=== PATIENT | female | born 1970 | race Caucasian/White ===

== ENCOUNTER 2019-12-11 22:11 | Inpatient (IN) | payer BC, SELFPAY ==
[2019-12-11 22:40] LABS: #Basophils 0.1 thou/uL (0.0-0.2); #Eosinphils 0.2 thou/uL (0.0-0.7); #Lymphocytes 2.4 thou/uL (1.20-3.40); #Monocytes 0.3 thou/uL (0.11-0.59); #Neutrophils 2.5 thou/uL (1.40-6.50); %Basophils 2.5 % (0.0-1.0); %Eosinophils 3.8 % (0.0-10.0); %Lymphocytes 42.8 % (21.0-51.0); %Monocytes 5.9 % (0.0-10.0); Mean Corpuscular Hemoglobin 31.3 pg (27.0-31.0); Platelet Count 359 thou/uL (130-400); RBC Distribution Width 14.2 % (11.5-14.5); Red Blood Cell (RBC) Count 4.17 mill/uL (4.20-5.40); White Blood Cell (WBC) Count 5.6 thou/uL (4.8-10.8)
--- NOTE | 2019-12-11 22:52 | CT ---
Exam: CT brain PROVIDED CLINICAL HISTORY: Seizure COMPARISON: None FINDINGS: The ventricular system is normal in size and morphology. No evidence for intracranial hemorrhage or mass effect. The extracranial soft tissues and osseous structures demonstrate no evidence for an acute abnormality. IMPRESSION: No evidence for intracranial hemorrhage or mass effect.
--- NOTE | 2019-12-11 22:55 | RAD ---
EXAM: Portable chest PROVIDED CLINICAL HISTORY: Seizure COMPARISON: None FINDINGS: Cardiac and mediastinal silhouette is within normal limits. No focal consolidation, pleural fluid or pneumothorax evident. IMPRESSION: No evidence for an acute cardiopulmonary process.
[2019-12-11 23:04] LABS: ALT (SGPT) 56 U/L (8-55); AST (SGOT) 126 U/L (5-34); Acetaminophen Less than 6.0 mcg/mL (10.0-30.0); Albumin 4.9 g/dL (3.5-5.0); Alcohol 218 mg/dL (Less than 10); Alkaline Phosphatase 112 U/L (40-110); Anion Gap 18 mmol/L (10-20); BUN (Urea Nitrogen) 11 mg/dL (7.0-18.7); Bilirubin, Total 0.2 mg/dL (0.2-1.2); CK (CPK) 79 U/L (29-168); Calc. Creatinine Clearance 0 mL/min (70-130); Calcium 9.6 mg/dL (7.8-10.44); Carbon Dioxide 22 mmol/L (22-29); Chloride 103 mmol/L (98-107); Estimated GFR-MDRD 71; Globulin 3.3 g/dL (2.4-3.5); Glucose 80 mg/dL (70-105); Lipase 99 U/L (8-78); Magnesium 2.1 mg/dL (1.6-2.6); Potassium 3.9 mmol/L (3.5-5.1); Protein, Total 8.2 g/dL (6.0-8.3); Salicylate Less than 8.0 mg/dL (15.0-30.0); Sodium 139 mmol/L (136-145)
[2019-12-11] MEDS ORDERED: Lorazepam 2 MG/ML VIAL ONE (23:07)
[2019-12-11 23:14] LABS: Bilirubin Negative (Negative); Blood, Urine Negative (Negative); Clarity Clear (Clear); Glucose, Urine (Dipstick) Normal (Negative); Leukocyte Negative Leu/uL (Negative); Nitrite Negative (Negative); Protein, Urine (Dipstick) Negative (Neg-Trace); Urobilinogen Normal mg/dL (Less than 2)
[2019-12-11 23:24] LABS: Free T4 (Free Thyroxine) 0.78 ng/dL (0.70-1.48); Thyroid Stimulating Hormone 4.6003 uIU/mL (0.35-4.94)
[2019-12-11 23:24] LABS: Amphetamine Not Detected (NotDetected); Barbiturates Screen Not Detected (NotDetected); Benzodiazepine Screen Detected (NotDetected); Cocaine Metabolite Screen Not Detected (NotDetected); Medtox Control Line Valid? VALID (VALID); Medtox Reader # READER 4; Methadone Not Detected (NotDetected); Methamphetamine Not Detected (NotDetected); Opiate Screen Not Detected (NotDetected); Oxycodone Screen Not Detected (NotDetected); Phencyclidine (PCP) Not Detected (NotDetected); THC/Cannabinoid Screen Not Detected (NotDetected); Tricyclic Screen Not Detected (NotDetected)
[2019-12-12] MEDS ORDERED: Multivitamins, Adult 10 ML, Thiamine HCl 100 MG, Folic Acid 1 MG in Dextrose 5 %-0.45 %... IV SCH (00:30)
[2019-12-12] MEDS ORDERED: Lorazepam 2 MG/ML VIAL ONE ×2 (00:34→05:50)
[2019-12-12 01:04] LABS: Troponin I 0.012 ng/mL (< 0.028)
[2019-12-12 03:38] LABS: Troponin I Less than 0.010 ng/mL (< 0.028)
--- NOTE | 2019-12-12 05:03 | HP ---
PRIMARY CARE PHYSICIAN: The patient currently does not have a primary care physician. CHIEF COMPLAINT: "I've been shaking all over." HISTORY OF PRESENT ILLNESS: The history of present illness is very limited as the patient is an extremely poor historian, but Ms. Jenkins is a pleasant 49-year-old female, who has no significant past medical history except for chronic migraine headaches and fibromyalgia. She says that every now and then she has episodes, where she is "shaking" and she says that today it was worse than usual. She is very vague about her symptomatology, but says that earlier today, she was shaking "all over." She herself denies any loss of consciousness and says that her was "getting tired of this" and so he brought her to the ER for evaluation. According to the ER records, the patient had a witnessed seizure-like episode while sitting on a couch, where she was shaking all over and was staring blankly. It lasted a few minutes and apparently, the patient was postictal for 5 to 10 minutes. The patient had also admitted to daily alcohol consumption over the past six months. When I asked her, she does admit to drinking a little bit more heavily than usual, but does not really quantitate it other than saying she drinks a few drinks during the day and then at night, she says she "has insomnia." So, she will wake up every hour or so and take a shot of bourbon in order to help her to sleep. She also notes that she has been shuffling around "like an elderly person" for the last month and a half and denies any other complaints. No nausea, no vomiting, no chest pain, etc. The patient was evaluated in the ER. She had a CT scan of the brain, which was negative; however, her plasma alcohol level was 218 and she did have some elevation in her liver function test and it is suspected that she likely had a withdrawal seizure. REVIEW OF SYSTEMS: All systems were reviewed and are negative except for that mentioned in the history of present illness. PAST MEDICAL HISTORY: Significant for chronic migraine, fibromyalgia as well as asthma. PAST SURGICAL HISTORY: She has had an ovarian cyst. ALLERGIES: NO KNOWN DRUG ALLERGIES. SOCIAL HISTORY: She is a former smoker. She had been smoking 5 to 6 cigarettes a day and for alcohol use, she states that she will drink some during the day and then takes several shots through the night to help her sleep. Otherwise, the history is very vague. She is . She is currently not employed. When asked further about her drinking, she says she denies having any DUIs. She does admit that she probably should cut back, but she has never tried quitting alcohol. FAMILY HISTORY: Significant for hypertension and diabetes. CURRENT MEDICATIONS: None. PHYSICAL EXAMINATION: GENERAL: She is alert and oriented. She appears to be in no acute distress. She sitting up on the stretcher, watching TV. VITAL SIGNS: Blood pressure was initially 187/119, currently 124/80; heart rate 145, now down to 123; respiratory rate of 16; and temperature is 98.6. HEENT: Pupils are equal, round, and reactive. Extraocular muscles are intact. Her sclerae are anicteric. Throat; no erythema, no exudates. NECK: No adenopathy. No bruits. LUNGS: Clear to auscultation. There is no wheezing, no rales, no rhonchi. CARDIOVASCULAR: She has a normal S1 and S2. There is no S3 or S4. No murmurs, clicks, or rubs. ABDOMEN: Obese. It is soft, nontender, and nondistended. Positive for bowel sounds. No rebound. No guarding. No organomegaly. EXTREMITIES: There is no clubbing or cyanosis. No edema. No joint effusions. SKIN AND INTEGUMENT: No skin changes. No rash. LABORATORY RESULTS: CBC; white blood cell count 5.6, hemoglobin 13, hematocrit is 38, and platelet count is 339. Sodium 139, potassium 3.9, chloride is 103, CO2 is 22, BUN of 11, creatinine 0.86, and glucose is 80. Urinalysis was essentially negative and her urine drug screen was positive for benzodiazepines and the serum alcohol level was 218. IMAGING DATA: CT scan of the brain was negative for any acute intracranial process and she had a chest x-ray, also that was essentially normal. Normal heart size and no infiltrates. ASSESSMENT: 1. This is a 49-year-old female, who presents to the emergency room with some shaking and possible seizure-like activity. Unfortunately, her is currently not present to describe the event. The patient herself does not remember any seizure activity. She says she never lost consciousness, but was shaking all over. This is a bit odd description, but it is noted that her heart rate was tachycardic and she was hypertensive and I suspect at least she is having alcohol withdrawal and she could have had an alcohol withdrawal seizure. She will be placed on observation, placed on seizure precautions. Since this was a single seizure, in the first, we will hold off on any antiepileptic medications, place her on thiamine and folate and she has been counseled on the need to quit alcohol use and consult Neurology. 2. Chronic migraine. This appears to be stable. 3. Fibromyalgia, also appears to be stable. Reconcile and restart her home medications. 4. Asthma. This appears clinically stable as well. Placed her on p.r.n. medicines. Also, we will check an ammonia level and consider abdominal ultrasound and hepatitis panel. Job ID: [id number]
[2019-12-12] MEDS ORDERED: Acetaminophen 325 MG TAB PO PRN (05:30)
[2019-12-12] MEDS ORDERED: cloNIDine 0.1 MG TAB PO PRN (05:30)
[2019-12-12] MEDS ORDERED: hydrALAZINE 20 MG/ML VIAL SLOW IVP PRN (05:30)
[2019-12-12] MEDS ORDERED: Promethazine 25 MG TAB PO PRN (05:30)
[2019-12-12] MEDS: Lorazepam 2 MG/ML VIAL SLOW IVP PRN ×2 (05:56→16:05)
[2019-12-12] MEDS ORDERED: Famotidine 20 MG TAB ONE (09:09)
[2019-12-12] MEDS: Famotidine 20 MG TAB PO SCH ×2 (09:27→19:38)
[2019-12-12 12:06] VITALS: BMI 22.8
[2019-12-12] MEDS ORDERED: Sodium Chloride 0.9% 500 ML IVPB SCH (15:45)
[2019-12-12] MEDS ORDERED: Lorazepam 1 MG TAB PO SCH (17:00)
[2019-12-12] MEDS: Sodium Chloride 0.9% 1,000 ML IV SCH (17:04)
[2019-12-12] MEDS: Acetaminophen 325 MG TAB PO PRN (17:37)
[2019-12-12] MEDS: Lorazepam 1 MG TAB PO PRN (19:39)
--- NOTE | 2019-12-12 20:44 | PDOC.EVN ---
Event Note - Event Note Event Note: Patient examined. Notified she was having persistent tachycardia. She reports headache, feeling a little anxious and diarrhea. Says diarrhea preceded this episode. Hx of migraines. Reports she drinks bourbon daily. Not sure how much because her SO drinks with her and she puts small amounts in her glass at a time. Has not gone 24 hours without drinking in six months. Has frequent tachycardia and some palpitations. She has intermittent episodes of of chest pain and pressure that lasts up to several hours at times. Discussed with her . He saw the episode. They were sitting, watching a movie. She started having some shaking in her legs. After a few min, he realized there was something wrong. Her head was leaning back and she did not respond to him. This lasted briefly. She says she remembers all of it. He says she was not herself for a while. She does not appear anxious. She looks relaxed. Heart is tachy, but regular. Will give tylenol, but avoiding caffeine for the WOODS in liht of the potential seizure and the sinus tach. Will give some additional Lorazepam. Has diarrhea, tachycardia and WOODS. All could be related to WD, but she does not look to have that countenance. Will have neuro consult later. Will get echo for the CP.
[2019-12-13] MEDS: Lorazepam 1 MG TAB PO PRN ×2 (01:24→12:05)
[2019-12-13] MEDS: Sodium Chloride 0.9% 1,000 ML IV SCH ×2 (01:28→12:17)
[2019-12-13] MEDS ORDERED: Multivitamins, Adult 10 ML, Folic Acid 1 MG, Thiamine HCl 100 MG in Dextrose 5 %-0.45 %... IV SCH (06:00)
[2019-12-13 07:18] LABS: #Basophils 0.1 thou/uL (0.0-0.2); #Eosinphils 0.1 thou/uL (0.0-0.7); #Lymphocytes 1.4 thou/uL (1.20-3.40); #Monocytes 0.4 thou/uL (0.11-0.59); %Basophils 1.9 % (0.0-1.0); %Eosinophils 3.5 % (0.0-10.0); %Lymphocytes 34.6 % (21.0-51.0); %Monocytes 9.2 % (0.0-10.0); %Neutrophils 50.8 % (42.0-75.0); Hemoglobin 10.4 g/dL (12.0-16.0); Mean Corpuscular Hemoglobin 31.6 pg (27.0-31.0); Mean Corpuscular Volume 93.2 fL (78.0-98.0); Mean Platelet Volume 6.1 fL (7.4-10.4); Platelet Count 251 thou/uL (130-400); RBC Distribution Width 14.1 % (11.5-14.5); Red Blood Cell (RBC) Count 3.27 mill/uL (4.20-5.40)
[2019-12-13 07:33] LABS: Anion Gap 12 mmol/L (10-20); BUN (Urea Nitrogen) 6 mg/dL (7.0-18.7); Calc. Creatinine Clearance 105 mL/min (70-130); Calcium 8.6 mg/dL (7.8-10.44); Carbon Dioxide 22 mmol/L (22-29); Chloride 110 mmol/L (98-107); Estimated GFR-MDRD Greater than 90; Glucose 108 mg/dL (70-105); Potassium 3.6 mmol/L (3.5-5.1); Sodium 140 mmol/L (136-145)
[2019-12-13] MEDS: Famotidine 20 MG TAB PO SCH (08:09)
[2019-12-13 15:55] VITALS: BP 133/76; TEMP 97.9
[2019-12-13] MEDS: Acetaminophen 325 MG TAB PO PRN (15:57)
--- NOTE | 2019-12-14 00:28 | CON ---
DATE OF CONSULTATION: 12/13/2019 CONSULTING PHYSICIAN: Hospitalist Service. IMPRESSION: Transient tremors related to alcohol abuse. PLAN: The patient can be discharged home. HISTORY OF PRESENT ILLNESS: Ms. Jenkins is a 49-year-old woman who has a history of fairly heavy drinking. She reports she has problems with insomnia and frequently does shots of whiskey at night to try to help her fall asleep. She started getting very shaky and jittery. Her decided to bring her into the emergency room. She had an alcohol level of 218. Her CT brain was unremarkable. She had an elevated blood pressure and heart rate. Her blood work showed elevated liver functions as well as mildly elevated lipase. She was given some IV fluids and some Ativan last night. She is feeling much better today. She had no particular complaints otherwise. She denies a history of DTs. She has never had a seizure. Her health is good otherwise. ALLERGIES: NONE. SOCIAL HISTORY: Positive for alcohol. Negative for drugs. FAMILY HISTORY: Unremarkable. REVIEW OF SYSTEMS: Ten-system review of systems is otherwise negative. PHYSICAL EXAMINATION: GENERAL: She is a well-nourished, middle-aged woman, sitting up in bed, in no distress. VITAL SIGNS: Blood pressure was as high as 187/119, pulse 145, respirations 16, and temperature 98.6. HEENT: Pupils equal and reactive. Conjunctivae clear. Oropharynx clear. NECK: Supple. EXTREMITIES: No cyanosis or edema. NEUROLOGICAL: She is alert and appropriate. Her speech is fluent and clear. She is oriented to person, place, and time. Her exam is nonfocal. She does not have any abnormal movements. SUMMARY: This is a middle-aged woman, who presented intoxicated with history of recent heavy drinking. Her workup was unremarkable. Everything has settled down overnight with fluids and Ativan. She appears stable for discharge. Job ID: [id number]
--- NOTE | 2019-12-14 14:51 | DIS ---
DATE OF ADMISSION: 12/12/2019 DATE OF DISCHARGE: 12/13/2019 DISCHARGE DIAGNOSES: 1. Acute alcohol intoxication. 2. Possible seizure activity. 3. Chronic migraine. 4. Fibromyalgia syndrome. 5. History of asthma. 6. Transaminitis. HISTORY OF PRESENT ILLNESS: This patient is a 49-year-old female, who has chronic migraine, who has been drinking a fair amount of bourbon including waking at night to drink bourbon in order to try to help her sleep. She was brought in by her . He was not initially available for the hospitalist history and physical; however, it indicated the patient had some generalized clonic movements and had been unresponsive. When I was able to get a full history, he indicated that they were sitting on the couch watching a movie and he noticed of his peripheral vision that she was having some jerking movement in his legs, which he did not initially respond to. However, once he realized that this was continuing and was abnormal, he approached her, but she had her head back and was unresponsive to him. This went on for probably 15 seconds until he could finally get her awake and ultimately brought her to the emergency department for further evaluation. In the emergency department, the patient was noted to have a blood alcohol level of 218 and a normal prolactin level. HOSPITAL COURSE: The patient was admitted to the hospital for possible new onset seizure activity and acute alcohol intoxication. Her liver enzymes were also somewhat elevated. The patient was somewhat tachycardic and a bit tremulous initially. She did receive some benzodiazepine and all that settled down considerably. She was hydrated overnight and by the following day, was feeling substantially better. She did report that she was having problems with her migraine. However, with the potential for underlying seizure activity and tachycardia, she was not given her usual caffeine containing medications. She was ultimately seen and evaluated by Neurology and was felt to be stable for discharge with no treatment for seizure. She also had an echocardiogram performed because of the ongoing tachycardia, which was normal. PHYSICAL EXAMINATION: VITAL SIGNS: On the day of discharge, temperature 97.9, pulse 81, respirations 16, O2 saturations 99% on room air, BP is 133/76. GENERAL APPEARANCE: Age-appropriate female, in no distress. She was awake and alert. HEART: Regular rate and rhythm. LUNGS: Clear. ABDOMEN: Benign. EXTREMITIES: No cyanosis, clubbing, or edema. DISPOSITION: The patient is discharged to home. ACTIVITY: Activity level is as tolerated. DIET: She has no dietary restrictions. DISCHARGE MEDICATIONS: She will continue zolpidem, lorazepam, Excedrin migraine, and butalbital/acetaminophen/caffeine combination for migraine p.r.n. FOLLOWUP: She is to follow up with Dr. Linares as needed and follow up with her PCP. She can return to the hospital at anytime should she have need to do so. Total time in discharge activities was less than 30 minutes. Job ID: [id number]
== END 2019-12-13 19:20 | disposition home or self-care (01) | DRG 897 ==
LOC: ERS 22:11 → ERHOLD 12-12 00:11 → 2NO 12-12 12:01
PROVIDERS: ADMIT Internal Medicine; ATTEND Internal Medicine
DX: F10.220 Alcohol dependence with intoxication, uncomplicated (principal); Y90.7 Blood alcohol level of 200-239 mg/100 ml; G47.00 Insomnia, unspecified; G43.909 Migraine, unspecified, not intractable, without status migrainosus; M79.7 Fibromyalgia; J45.909 Unspecified asthma, uncomplicated; Z87.891 Personal history of nicotine dependence; I10 Essential (primary) hypertension; R00.0 Tachycardia, unspecified
CPT/HCPCS: 36415; 70450; 71045; 80048; 80053; 80306; 80307; 81003; 82248; 82550; 83690; 83735; 84146; 84439; 84443; 84484; 85025; 93005; 93306; 96361; 96365; 96366; 96375; 96376; J2060; J3411; J7042; J7050